=== PATIENT | female | born 1975 | race African-American/Black ===

== ENCOUNTER 2017-01-05 05:33 | Emergency (ER) | payer SELFPAY ==
[~2017-01-05] VITALS: Ht 175.3 cm; Wt 126.6 kg
[2017-01-05 05:59] LABS: HEMATOCRIT 34.3 % (36.0-46.0); MCH 28.4 PG (29.0-34.0); MCHC 32.7 G/DL (30.0-36.0); MCV 86.8 FL (83-99); RBC DIS.WIDTH-CV 12.5 % (11.8-14.6); RBC DIS.WIDTH-SD 39.9 % (39-53); RED BLOOD COUNT 3.95 M/uL (3.80-5.20); WHITE BLOOD COUNT 6.1 K/uL (4.1-10.2)
[2017-01-05 06:07] LABS: CHLORIDE 102 mEq/L (99-109); POTASSIUM 3.5 mEq/L (3.7-5.4); SODIUM 140 mEq/L (136-147)
[2017-01-05 06:09] LABS: GLUCOSE 104 mg/dL (70-99)
[2017-01-05 06:10] LABS: ANION GAP 11 MEQ/L (2-14)
[2017-01-05 06:12] LABS: GFR ESTIMATE (CALCULATED) > 59 mL/min/
[2017-01-05 06:13] LABS: UREA NITROGEN (BUN) 19 mg/dL (9-23)
[2017-01-05 06:19] LABS: TROP-I INTERPRETATION NEGATIVE; TROPONIN-I 0.02 ng/mL (0.0-0.30)
[2017-01-05 06:42] LABS: MEAN PLAT.VOLUME 11.5 uM^3 (9.5-12.4); PLAT.SUFFICIENCY ADEQUATE; PLATELET COUNT 245 K/uL (156-360)
[2017-01-05 07:15] LABS: D-DIMER ELISA < 150.00 ng/mLDDU (<230)
[2017-01-05 08:26] LABS: TOTAL BILIRUBIN 0.3 mg/dL (0.0-1.0)
[2017-01-05 08:27] LABS: ALKALINE PHOSPHATASE 107 IU/L (3-129)
[2017-01-05 08:30] LABS: DIRECT BILIRUBIN 0.1 mg/dL (0.0-0.3)
[2017-01-05 09:19] LABS: ADD MIUA? NO; BILIRUBIN NEGATIVE; BLOOD NEGATIVE; COLOR YELLOW ((YELLOW)); GLUCOSE (STRIP) NEGATIVE; KETONES NEGATIVE; LEUKOCYTES NEGATIVE; NITRITE NEGATIVE; PROTEIN (STRIP) 30; SPECIFIC GRAVITY 1.015 (1.000-1.030); UCUL ADDED? NO; UROBILINOGEN 0.2 MG/DL (0.2-1.0)
[2017-01-05 11:07] LABS: TROP-I INTERPRETATION NEGATIVE; TROPONIN-I 0.02 ng/mL (0.0-0.30)
[2017-01-05 12:40] VITALS: BP 126/82
== END 2017-01-05 12:41 | disposition home or self-care (01) ==
LOC: EME 05:33
PROVIDERS: Emergency Medicine
DX: R07.89 Other chest pain (principal); I10 Essential (primary) hypertension
CPT/HCPCS: 71020; 80048; 80076; 81003; 84484; 85027; 85379; 93005; 99281; 99284

== ENCOUNTER 2017-01-21 21:50 | Emergency (ER) | payer OTHER ==
[~2017-01-21] VITALS: Ht 175.3 cm; Wt 126.5 kg
[2017-01-21] MEDS ORDERED: LEVOXYL200 MCG PO (22:22)
[2017-01-21 23:17] LABS: HEMATOCRIT 31.7 % (36.0-46.0); MCH 27.4 PG (29.0-34.0); MCHC 31.9 G/DL (30.0-36.0); MCV 86.1 FL (83-99); MEAN PLAT.VOLUME 12.2 uM^3 (9.5-12.4); PLATELET COUNT 255 K/uL (156-360); RBC DIS.WIDTH-CV 12.5 % (11.8-14.6); RBC DIS.WIDTH-SD 39.8 % (39-53); RED BLOOD COUNT 3.68 M/uL (3.80-5.20); WHITE BLOOD COUNT 5.7 K/uL (4.1-10.2)
[2017-01-21 23:35] LABS: CHLORIDE 100 mEq/L (99-109); POTASSIUM 3.3 mEq/L (3.7-5.4); SODIUM 139 mEq/L (136-147)
[2017-01-21 23:37] LABS: GLUCOSE 113 mg/dL (70-99)
[2017-01-21 23:39] LABS: ANION GAP 11 MEQ/L (2-14)
[2017-01-21 23:41] LABS: GFR ESTIMATE (CALCULATED) > 59 mL/min/
[2017-01-21 23:42] LABS: UREA NITROGEN (BUN) 22 mg/dL (9-23)
[2017-01-21 23:43] LABS: CREATINE KINASE 352 IU/L (1-294)
[2017-01-21 23:51] LABS: ADD MIUA? YES; BILIRUBIN NEGATIVE; BLOOD LARGE; COLOR YELLOW ((YELLOW)); GLUCOSE (STRIP) NEGATIVE; KETONES NEGATIVE; LEUKOCYTES NEGATIVE; NITRITE NEGATIVE; PROTEIN (STRIP) 30; SPECIFIC GRAVITY 1.025 (1.000-1.030); UROBILINOGEN 0.2 MG/DL (0.2-1.0)
[2017-01-21 23:53] LABS: QUANTITATIVE HCG < 4.0 MIU/ML
[2017-01-21 23:57] LABS: BACTERIA RARE /HPF; EPITHELIAL CELLS RARE /HPF; MUCUS TRACE /LPF; RED BLOOD CELLS 0-5 /HPF (0-5); UCUL ADDED? NO; WHITE BLOOD CELLS 0-5 /HPF (0-5)
[2017-01-22 02:09] VITALS: BP 156/106
== END 2017-01-22 02:10 | disposition home or self-care (01) ==
LOC: EME 21:50 → EXP 21:50
PROVIDERS: Physician Assistant
DX: E03.9 Hypothyroidism, unspecified (principal); M62.82 Rhabdomyolysis; M54.16 Radiculopathy, lumbar region; M79.604 Pain in right leg; M54.2 Cervicalgia; M79.601 Pain in right arm
CPT/HCPCS: 80048; 81003; 82550; 84702; 85027; 93971; 99281; 99284; J7030

== ENCOUNTER 2017-08-17 19:42 | Emergency (ER) | payer OTHER ==
[~2017-08-17] VITALS: Ht 175.3 cm; Wt 130.0 kg
[~2017-08-17 19:42] MED LIST: LEVOXYL200 MCG PO
[2017-08-17] MEDS ORDERED: MOTRIN800 MG PO (22:28)
[2017-08-17 23:46] VITALS: BP 162/97
== END 2017-08-17 23:49 | disposition home or self-care (01) ==
LOC: EME 19:42
DX: S83.91XA Sprain of unspecified site of right knee, initial encounter (principal); X50.3XXA Overexertion from repetitive movements, initial encounter; Y93.01 Activity, walking, marching and hiking; M25.461 Effusion, right knee; M79.671 Pain in right foot; M25.551 Pain in right hip; E03.9 Hypothyroidism, unspecified; I10 Essential (primary) hypertension; Z88.2 Allergy status to sulfonamides; R07.9 Chest pain, unspecified
CPT/HCPCS: 73564; 93971; 99281; 99284

== ENCOUNTER 2017-08-30 22:55 | Emergency (ER) | payer OTHER ==
[~2017-08-30] VITALS: Ht 172.7 cm; Wt 126.5 kg
[~2017-08-30 22:55] MED LIST changes: +MOTRIN800 MG PO
[2017-08-30 23:33] LABS: HEMATOCRIT 29.8 % (36.0-46.0); HEMOGLOBIN 9.6 G/DL (11.9-15.5); MCH 27.9 PG (29.0-34.0); MCHC 32.2 G/DL (30.0-36.0); MCV 86.6 FL (83-99); RBC DIS.WIDTH-CV 13.1 % (11.8-14.6); RBC DIS.WIDTH-SD 41.1 % (39-53); RED BLOOD COUNT 3.44 M/uL (3.80-5.20); WHITE BLOOD COUNT 6.5 K/uL (4.1-10.2)
[2017-08-30 23:42] LABS: CHLORIDE 101 mEq/L (99-109); POTASSIUM 3.4 mEq/L (3.7-5.4); SODIUM 140 mEq/L (136-147)
[2017-08-30 23:44] LABS: GLUCOSE 97 mg/dL (70-99)
[2017-08-30 23:47] LABS: CREATININE 1.3 mg/dL (0.6-1.3); GFR ESTIMATE (CALCULATED) 58 mL/min/
[2017-08-30 23:48] LABS: UREA NITROGEN (BUN) 21 mg/dL (9-23)
[2017-08-30 23:54] LABS: TROP-I INTERPRETATION NEGATIVE; TROPONIN-I < 0.01 ng/mL (0.0-0.30)
[2017-08-31 00:53] LABS: PLAT.SUFFICIENCY ADEQUATE; PLATELET COUNT 306 K/uL (156-360)
[2017-08-31 02:20] LABS: TROP-I INTERPRETATION NEGATIVE; TROPONIN-I < 0.01 ng/mL (0.0-0.30)
[2017-08-31 03:16] VITALS: BP 108/75
== END 2017-08-31 03:17 | disposition home or self-care (01) ==
LOC: EME 22:55
PROVIDERS: Emergency Medicine
DX: R07.89 Other chest pain (principal); I10 Essential (primary) hypertension; Z88.2 Allergy status to sulfonamides
CPT/HCPCS: 71046; 80048; 84484; 85027; 93005; 99281; 99285

== ENCOUNTER 2017-09-05 18:33 | Emergency (ER) | payer OTHER ==
[~2017-09-05] VITALS: Ht 172.7 cm; Wt 125.9 kg
[2017-09-05 19:24] LABS: HEMATOCRIT 31.6 % (36.0-46.0); HEMOGLOBIN 10.2 G/DL (11.9-15.5); MCH 27.7 PG (29.0-34.0); MCHC 32.3 G/DL (30.0-36.0); MCV 85.9 FL (83-99); RBC DIS.WIDTH-CV 13.1 % (11.8-14.6); RBC DIS.WIDTH-SD 41.4 % (39-53); RED BLOOD COUNT 3.68 M/uL (3.80-5.20); WHITE BLOOD COUNT 6.2 K/uL (4.1-10.2)
[2017-09-05 19:36] LABS: CHLORIDE 102 mEq/L (99-109); POTASSIUM 3.4 mEq/L (3.7-5.4); SODIUM 138 mEq/L (136-147)
[2017-09-05 19:38] LABS: GLUCOSE 87 mg/dL (70-99)
[2017-09-05 19:42] LABS: CREATININE 0.9 mg/dL (0.6-1.3); GFR ESTIMATE (CALCULATED) > 59 mL/min/
[2017-09-05 19:43] LABS: UREA NITROGEN (BUN) 20 mg/dL (9-23)
[2017-09-05 19:46] LABS: TROP-I INTERPRETATION NEGATIVE; TROPONIN-I 0.01 ng/mL (0.0-0.30)
[2017-09-05 20:18] LABS: PLATELET CLUMPS PRESENT - PLATELET COUNT APPEARS ADQ.; PLATELET COUNT UNABLE TO REPORT K/uL (156-360)
[2017-09-05 20:45] VITALS: BP 179/110
== END 2017-09-05 20:47 | disposition home or self-care (01) ==
LOC: EME 18:33
DX: R07.89 Other chest pain (principal); R10.13 Epigastric pain; I10 Essential (primary) hypertension; E03.9 Hypothyroidism, unspecified; Z88.2 Allergy status to sulfonamides
CPT/HCPCS: 71046; 80048; 84484; 85027; 93005; 99281; 99284